=== PATIENT | female | born 1965 ===

== ENCOUNTER 2018-11-29 12:42 | Emergency (ER) | payer OTHER ==
[2018-11-29] MEDS ORDERED: Adenosine 6 MG/2 ML SDV ONE (12:44)
[2018-11-29] MEDS ORDERED: Adenosine 6 MG/2 ML SDV IVPUSH ONE (13:00)
--- NOTE | 2018-11-29 13:20 | EDM.PDOC ---
ED HPI GENERAL MEDICAL PROBLEM - General Chief Complaint: General Stated Complaint: SOB Time Seen by Provider: 11/29/18 13:05 Source of Information: Reports: Patient History Limitations: Reports: No Limitations - History of Present Illness INITIAL COMMENTS - FREE TEXT/NARRATIVE: This patient is a 53 year old female that presents to the ER. Patient reports that she woke this morning at 8am not feeling well. She reports that since then , she has had pain in her chest, shortness of breath, nausea, cant take a big deep breath, and generally not feeling well. Patient reports that she has had this sensation before, but usually only last a minute. But, today it seems to have lasted a very long time. She reports yesterday she was fine and out picking and hauling pumpkins. She reports today they came to visit family near by. She reports in the car she had these symptoms and was feeling anxious, so they stopped here at ER. Patient reports she has never been seen for these episodes before. "I cant even feel my heart beating in my chest." Onset: Today Onset Date: 11/29/18 Onset Time: 08:00 Location: Reports: Chest Quality: Reports: Other ("hurts") Severity: Moderate Improves with: Reports: None Worsens with: Reports: None Associated Symptoms: Reports: Chest Pain, Malaise, Nausea/Vomiting, Shortness of Breath. Denies: Confusion, Cough, cough w sputum, Diaphoresis, Fever/Chills , Headaches, Loss of Appetite, Rash, Seizure, Syncope, Weakness - Related Data Allergies Allergy/AdvReac Type Severity Reaction Status Date / Time No Known Allergies Allergy Verified 11/29/18 13:23 Home Meds: Home Meds Losartan [Cozaar] 50 mg PO DAILY 11/29/18 [History] Venlafaxine HCl [Venlafaxine ER] 150 mg PO BEDTIME 11/29/18 [History] ED ROS GENERAL - Review of Systems Review Of Systems: See Below Constitutional: Reports: Malaise HEENT: Reports: No Symptoms Respiratory: Reports: Shortness of Breath, Other (cant take deep breath) Cardiovascular: Reports: Chest Pain, Lightheadedness Endocrine: Reports: No Symptoms GI/Abdominal: Reports: Nausea. Denies: Abdominal Pain, Diarrhea, Vomiting : Reports: No Symptoms Musculoskeletal: Reports: No Symptoms Skin: Reports: No Symptoms Neurological: Reports: No Symptoms Psychiatric: Reports: Anxiety Hematologic/Lymphatic: Reports: No Symptoms Immunologic: Reports: No Symptoms ED EXAM, GENERAL - Physical Exam Exam: See Below Exam Limited By: No Limitations General Appearance: Alert, WD/WN, Anxious, Moderate Distress Throat/Mouth: Normal Inspection, Normal Lips, Normal Teeth, Normal Gums, Normal Oropharynx, Normal Voice, No Airway Compromise Head: Atraumatic, Normocephalic Respiratory/Chest: No Respiratory Distress, Lungs Clear, Normal Breath Sounds, No Accessory Muscle Use Cardiovascular: Normal Peripheral Pulses, No Edema, Tachycardia (SVT) Peripheral Pulses: 2+: Radial (L), Radial (R), Posterior Tibial (L), Posterior Tibial (R) GI/Abdominal: Soft, Non-Tender Rectal (Female) Exam: Normal Exam Back Exam: Normal Inspection, Full Range of Motion Extremities: Normal Inspection, Normal Range of Motion, Non-Tender, No Pedal Edema, Normal Capillary Refill Neurological: Alert, Oriented, Normal Cognition Psychiatric: Anxious Skin Exam: Warm, Dry, Intact, Normal Color, No Rash EKG INTERPRETATION EKG Date: 11/29/18 Time: 12:48 Rhythm: Other (SVT) Rate (Beats/Min): 179 Comparison: NA - No Prior EKG Course - Vital Signs Last Recorded V/S: Last Vital Signs Temp 97.2 F 11/29/18 13:00 Pulse 99 11/29/18 14:08 Resp 18 11/29/18 14:08 BP 107/76 11/29/18 14:08 Pulse Ox 98 11/29/18 14:08 - Orders/Labs/Meds Orders: Active Orders 24 hr Category Date Time Status EKG Documentation Completion [RC] STAT Care 11/29/18 13:06 Active EKG Documentation Completion [RC] STAT Care 11/29/18 13:21 Active Chest 1V Frontal [CR] Stat Exams 11/29/18 13:06 Taken Labs: Laboratory Tests 11/29/18 11/29/18 11/29/18 Range/Units 12:52 12:52 12:52 WBC 14.0 H (5.0-10.0) 10^3/uL RBC 4.47 (4.00-5.50) 10^6/uL Hgb 12.9 (12.0-16.0) g/dL Hct 38.9 (37.0-47.0) % MCV 87.0 (82.0-94.0) fL MCH 28.9 (27.0-32.0) pg MCHC 33.2 (33.0-38.0) g/dL RDW Coeff of Angela 13.5 (11.0-15.0) % Plt Count 264 (150-400) 10^3/uL Neut % (Auto) 80.3 (35-85) % Lymph % (Auto) 11.0 (10-55) % [place] % (Auto) 8.5 (0-16) % Eos % (Auto) 0.1 (0-5) % Baso % (Auto) 0.1 (0-3) % Neut # (Auto) 11.20 H (1.80-7.00) 10^3/uL Lymph # (Auto) 1.54 (1.00-4.80) 10^3/uL [place] # (Auto) 1.18 H (0.00-0.80) 10^3/uL Eos # (Auto) 0.02 (0.00-0.45) 10^3/uL Baso # (Auto) 0.02 10^3/uL PT 10.0 (9.7-12.3) SEC INR 0.97 (0.92-1.18) APTT 26.2 (23.2-32.3) SEC Sodium 142 (136-145) mEq/L Potassium 3.8 (3.5-5.0) mEq/L Chloride 105 (98-106) mEq/L Carbon Dioxide 25 (21-32) mmol/L BUN 17 (7-18) mg/dL Creatinine 1.1 H (0.6-1.0) mg/dL Est Cr Clr Drug Dosing 47.32 mL/min Estimated GFR (MDRD) 52 L (>=60) mL/min Glucose 149 H (75-99) mg/dL Calcium 8.9 (8.4-10.1) mg/dL Total Bilirubin 0.6 (0.0-1.0) mg/dL AST 15 (15-37) U/L ALT 19 (12-78) U/L Alkaline Phosphatase 82 (46-116) U/L Lactate Dehydrogenase 183 (100-190) U/L Creatine Kinase 111 (21-215) U/L Troponin I 0.146 H (0.00-0.06) ng/mL NT-Pro-B Natriuret Pep 1826 H (0-1000) pg/mL Total Protein 7.8 (6.4-8.2) g/dL Albumin 3.6 (3.4-5.0) g/dL Meds: Medications Discontinued Medications Generic Name Dose Route Start Last Admin Trade Name Chito PRN Reason Stop Dose Admin Adenosine Confirm 11/29/18 12:44 11/29/18 13:59 Adenocard Administered 11/29/18 12:45 Not Given Dose 6 mg .ROUTE .STK-MED ONE Adenosine 6 mg 11/29/18 13:00 11/29/18 13:02 Adenocard IVPUSH 11/29/18 13:01 6 mg NOW ONE Administration Aspirin 324 mg 11/29/18 13:59 11/29/18 14:03 Aspirin PO 11/29/18 14:00 324 mg ONETIME ONE Administration Morphine Sulfate 5 mg 11/29/18 14:26 11/29/18 14:42 Morphine IVPUSH 11/29/18 14:27 5 mg ONETIME ONE Administration Ondansetron HCl 4 mg 11/29/18 14:26 11/29/18 14:42 Zofran IVPUSH 11/29/18 14:27 4 mg NOW STA Administration - Radiology Interpretation Free Text/Narrative:: CXR: cardiac leads in place. No pulmonary edema, no infiltrates, no cardiomegaly. - Re-Assessments/Exams Free Text/Narrative Re-Assessment/Exam: 11/29/18 13:00 Upon my arrival in exam room, initially tried vagal maneuvers without success. Patient explained the risks of medication Adenosine. She understands and accepts it. Adenosine 6mg push given. Patient converted to SR rate of 90, captured on EKG. Repeat EKG ordered. Patient now reports she feels much better and her symptoms have improved. Hemodynamically stable, no complications. 11/29/18 13:59 Patient reports her pain in chest is still present, but improved. She reports her pain is a 7/10. When she arrived it was a 10/10. She reports her shortness of breath is still current, but has improved significantly. She reports her pain in her chest is with inspiration. Her shortness of breath is also made worse with inspiration. She reports that her pain is central chest. She reports nausea is resolved. Patient does not appear as anxious. I have called [facility] in [place], faxed over EKG and lab work, awaiting call back. 11/29/18 14:04 EKG after conversion: time 1341 rate 101 Sinus tach. EKG during conversion: time 13:02 rate 133, conversion with Adenosine captured. 11/29/18 14:[address] [facility] back. I ordered Morphine and Zofran for this patient for her pain. Due to patient still having chest pain, will transfer the patient. I spoke to Dr. Evans ER physician at [facility] who has accepted the patient. I will hold Nitro at this time. Will transfer to [facility] in [place]. Departure - Departure Time of Disposition: 14:47 Disposition: DC/Tfer to Acute Hospital 02 Condition: Fair Clinical Impression: SVT (supraventricular tachycardia), Elevated troponin, Elevated brain natriuretic peptide (BNP) level Chest pain Qualifiers: Chest pain type: unspecified Qualified Code(s): R07.9 - Chest pain, unspecified - Discharge Information *PRESCRIPTION DRUG MONITORING PROGRAM REVIEWED*: Not Applicable *COPY OF PRESCRIPTION DRUG MONITORING REPORT IN PATIENT [place]ANK[place]: Not Applicable Instructions: Supraventricular Tachycardia, Adult, [id number], Chemical Cardioversion Referrals: PCP,Unknown [Primary Care Provider] - Forms: ED Department Discharge - My Orders Last 24 Hours: My Active Orders 11/29/18 13:06 EKG Documentation Completion [RC] STAT Chest 1V Frontal [CR] Stat 11/29/18 13:21 EKG Documentation Completion [RC] STAT - Assessment/Plan Last 24 Hours: My Active Orders 11/29/18 13:06 EKG Documentation Completion [RC] STAT Chest 1V Frontal [CR] Stat 11/29/18 13:21 EKG Documentation Completion [RC] STAT Plan: PLEASE SEE RN NOTE FOR PFSH. Patient is being transferred to [facility] and understands and accepts risks of transfer. The risks of transfer are mvc, svt again, cardiac arrest, respiratory arrest, worsening of pain, . 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 The risks of staying in [place] is , svt again, worsening of pain, cardiac arrest. The benefits of staying in [place] are none.
[2018-11-29] MEDS ORDERED: Aspirin 81 MG Tab.Chew PO ONE (13:59)
[2018-11-29] MEDS ORDERED: Ondansetron 4 MG/2 ML SDV IVPUSH STA (14:26)
[2018-11-29] MEDS ORDERED: Morphine 10 MG/ML Syringe IVPUSH ONE (14:26)
== END 2018-11-29 15:15 ==
LOC: CC.ED 12:42
DX: I47.1 Supraventricular tachycardia (principal); R79.89 Other specified abnormal findings of blood chemistry; Z79.899 Other long term (current) drug therapy
CPT/HCPCS: 36415; 71045; 80053; 82550; 83615; 83880; 84484; 85025; 85610; 85730; 93005; 96374; 96375; 99285-25; A9270-GY; J0153; J2270; J2405